=== PATIENT | female | born 1970 | race Caucasian/White ===

== ENCOUNTER 2019-05-01 12:30 | Emergency (ER) | payer OTHER, SELFPAY ==
[2019-05-01 12:39] VITALS: BP 156/94; PULSE 87; RESP 22; TEMP 36.7; O2SAT 99; BMI 30.7
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
--- NOTE | 2019-05-01 12:55 | XR_ITS ---
WS: [id number] Portable AP upright chest, 05/01/2019 Clinical Data: CHEST PAIN Comparison: Portable chest, 04/21/2019. Findings: No nodules, masses or effusions are seen. The heart is normal. The pulmonary vascularity is not increased. No pneumonia or pneumothorax is seen. XR/XR chest 1V portable [id number] Impression: Negative chest.
[2019-05-01 13:28] LABS: Basophils # 0.1 10^3/uL (0.0-0.1); Basophils % 0.6 %; Eosinophils # 0.1 10^3/uL (0.0-0.8); Eosinophils % 0.5 %; Hematocrit 42.8 % (37.0-47.0); Hemoglobin 14.2 g/dL (11.5-15.3); Lymphocytes # 3.6 10^3/uL (0.8-4.8); Mean Corpuscular HGB Conc 33.2 g/dL (30.0-36.0); Mean Corpuscular Hemoglobin 30.8 pg (28.0-34.0); Mean Corpuscular Volume 92.8 fL (81-99); Mean Platelet Volume 10.7 fL (7.4-10.4); Monocytes # 1.1 10^3/uL (0.2-0.9); Monocytes % 6.2 %; Neutrophils # 12.1 10^3/uL (1.8-7.7); Neutrophils % 70.8 %; Nucleated Red Blood Cells % 0 %; Platelet Count 361 10^3/cmm (130-400); Red Blood Count 4.61 10^6/uL (4.1-5.3); Red Cell Distribution Width 13.2 % (12.1-15.1)
[2019-05-01 13:45] LABS: Troponin(5th) Baseline 7 ng/mL (0-10)
[2019-05-01 13:53] LABS: Alanine Aminotransferase 15 U/L (0-33); Albumin Level 4.3 g/dL (3.5-5.2); Alkaline Phosphatase 164 IU/L (35-105); Anion Gap 18.5 (5-19); Aspartate Amino Transferase 12 U/L (0-32); Blood Urea Nitrogen 11 mg/dL (6-20); Calcium 9.9 mg/Dl (8.6-10.0); Carbon Dioxide 22 mmol/L (22-29); Chloride 100 mmol/L (98-107); Globulin 3.1 g/dL (1.3-4.6); Glomerular Filtration Rate 76.6 mL/min (90-130); Glucose 101 mg/dL (74-109); Lipase 25 U/L (13-60); NT Pro B Type Natriuretic Pept 256 pg/mL (0-125); Potassium 3.5 mmol/L (3.5-5.1); Sodium 137 mmol/L (136-145); Total Bilirubin 0.2 mg/dL (0.15-1.2); Total Protein 7.4 g/dL (6.6-8.7)
[2019-05-01] MEDS: ondansetron 2 mg/ML SDV 2 mL 4 MG IVP (13:57)
[2019-05-01] MEDS: nitroglycerin 0.4 mg sublingual Tablet SUBLINGUAL (13:58)
[2019-05-01] MEDS: sodium chloride 0.9% 500 ML 999 ML IV (13:59)
[2019-05-01] MEDS: aspirin 81 mg Chew Tablet 324 MG PO (13:59)
[2019-05-01 14:29] LABS: D Dimer 0.45 ug/mIFEU (0-0.59)
[2019-05-01 14:38] LABS: ABG PCO2 31.7 mmHg (35-45); ABG PH Result 7.46 (7.35-7.45); Arterial Blood Gas Hematocrit 41.2 % (37-47); Base Excess ABG -0.3 mmol/L (-2.0-2.0); Blood Gas Allen Test Pos; Blood Gas Sample Site Brachial, left; Blood Gas Sample Type Arterial; HCO3 ABG 22.7 mmol/L (22-26); PO2 ABG 84.9 mmHg (80.0-100.0)
--- NOTE | 2019-05-01 14:55 | ECG_ITS ---
Measurements Intervals [place] Rate: 67 P: 58 NV: 133 QRS: 68 QRSD: 93 T: 58 QT: 401 QTc: 425 SINUS RHYTHM WITH SINUS ARRHYTHMIA Compared to ECG 04/21/2019 09:14:59 No significant changes Electronically Signed On 05-01-2019 19:09:01 [facility] by Liliana Aguilera M.D. [id number]
[2019-05-01 16:03] LABS: Troponin 5 2HR 7.13 ng/mL (0-10)
[2019-05-01 16:14] LABS: Troponin 5 2HR Delta 0.13 ABS# (0-10)
[2019-05-01] MEDS: ipratropium-albuterol 3 mL Neb 9 ML INHALATION (16:16)
[2019-05-01 16:18] VITALS: PULSE 79; RESP 16; O2SAT 98
[2019-05-01 16:28] VITALS: PULSE 94
[2019-05-01 16:37] VITALS: BP 137/77; PULSE 94; RESP 20; O2SAT 99
[2019-05-01 17:22] VITALS: BP 105/75; PULSE 68; RESP 17; O2SAT 99
--- NOTE | 2019-05-01 18:55 | ECG_ITS ---
Measurements Intervals [place] Rate: 87 P: 56 MD: 131 QRS: 68 QRSD: 94 T: 61 QT: 351 QTc: 424 SINUS RHYTHM Compared to ECG 04/21/2019 09:14:59 No significant changes Electronically Signed On 05-01-2019 19:10:01 MANAGER AIR by Liliana Aguilera M.D. [id number]
== END 2019-05-01 17:23 | disposition home or self-care (01) ==
PROVIDERS: Emergency Provider Emergency Medicine; Family Provider Nurse Practitioner
DX: J44.1 Chronic obstructive pulmonary disease with (acute) exacerbation (principal); F17.210 Nicotine dependence, cigarettes, uncomplicated
CPT/HCPCS: 36415; 36600; 71045; 80053; 82803; 83690; 83880; 84484; 85025; 85378; 93005; 94640; 96360; 96365; 96374; 99282; J1100; J2405; J2930; J7040

== ENCOUNTER 2020-04-05 08:52 | Emergency (ER) | payer OTHER, SELFPAY ==
[2020-04-05] VITALS (10 sets, daily range): BP systolic 118–146; BP diastolic 73–95; PULSE 87–102; RESP 16–20; TEMP 36.7; O2SAT 97–100; BMI 31.4
--- NOTE | 2020-04-05 08:56 | XR_ITS ---
WS: [id number] XR chest 1V portable [id number] REASON FOR EXAM: sob FINDINGS: The chest is unchanged compared to previous examination of 05/01/2019. The heart and mediastinum are within normal limits. Calcified granulomatous changes in both hemithoraces. No active pulmonary parenchymal pleural disease noted. Mild reverse S thoracic scoliosis. XR/XR chest 1V portable [id number] IMPRESSION: No acute chest abnormality.
[2020-04-05 09:56] LABS: Basophils # 0.1 10^3/uL (0.0-0.1); Basophils % 0.8 %; Eosinophils # 0.2 10^3/uL (0.0-0.8); Eosinophils % 1.9 %; Hematocrit 44.1 % (37.0-47.0); Hemoglobin 14.3 g/dL (11.5-15.3); Lymphocytes # 1.9 10^3/uL (0.8-4.8); Lymphocytes % 22.7 %; Mean Corpuscular HGB Conc 32.4 g/dL (30.0-36.0); Mean Corpuscular Volume 92.5 fL (81-99); Mean Platelet Volume 10.6 fL (7.4-10.4); Monocytes # 0.8 10^3/uL (0.2-0.9); Monocytes % 8.8 %; Neutrophils # 5.56 10^3/uL (1.8-7.7); Neutrophils % 65.4 %; Nucleated Red Blood Cells % 0 %; Platelet Count 332 10^3/cmm (130-400); Red Blood Count 4.77 10^6/uL (4.1-5.3); White Blood Count 8.5 10^3/uL (4.0-10.0)
[2020-04-05 10:08] LABS: D Dimer 0.28 ug/mIFEU (0-0.59)
--- NOTE | 2020-04-05 10:08 | ECG_ITS ---
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 Measurements Intervals [place] Rate: 94 P: 64 [place]: 152 QRS: 79 QRSD: 93 T: 74 QT: 355 QTc: 445 Interpretive Statements SINUS RHYTHM MODERATE ST DEPRESSION [0.05+ mV ST DEPRESSION] No previous ECG available for comparison Electronically Signed On 04-06-2020 19:43:53 SHIFT MGR by Liliana Aguilera M.D. [id number]
[2020-04-05 10:10] LABS: Alanine Aminotransferase 13 U/L (0-33); Albumin Level 4.4 g/dL (3.5-5.2); Alkaline Phosphatase 163 IU/L (35-105); Aspartate Amino Transferase 16 U/L (0-32); Blood Urea Nitrogen 12 mg/dL (6-20); Calcium 9.2 mg/dL (8.5-10.5); Carbon Dioxide 22 mmol/L (22-29); Chloride 103 mmol/L (98-107); Creatinine Clr Calc Pharmacy 105.1156; Glomerular Filtration Rate 88.9 mL/min (90-130); Glucose 91 mg/dL (65-115); Osmolality Calculated 283 mOsm/kg (285-295); Sodium 137 mmol/L (136-145); Total Bilirubin 0.3 mg/dL (0.15-1.2); Total Protein 6.4 g/dL (6.6-8.7)
[2020-04-05 10:12] LABS: Troponin T (5th) Once 6 ng/L (0-10)
[2020-04-05 10:13] LABS: Anion Gap 16.1 (5-19); Potassium 4.1 mmol/L (3.5-5.1)
[2020-04-05 10:57] LABS: SARS Covid-2 Antigen Negative (Negative)
--- NOTE | 2020-04-05 12:42 | ED_ITS ---
HPI - SOB/Dyspnea General: Chief Complaint: Shortness of Breath/Dyspnea Stated Complaint: Trouble Breathing Time Seen by Provider: 04/05/20 08:56 Source: patient Mode of arrival: ambulatory Limitations: no limitations History of Present Illness: HPI Narrative: 49-year-old female patient presents to the emergency department complaining of shortness of breath. Patient states this is been going on for a few days. Patient states she is being worked up for COPD and has chronic shortness of breath. Patient denies any chest pain. Patient denies any fever. Patient denies any back pain. Patient denies any history of blood clots. Patient denies any abdominal pain nausea or vomiting. Patient states nothing she does makes it better or worse. Patient states she used her inhaler x4 prior to coming in. Associated symptoms: Deny abdominal pain, chest congestion, chest pain, diaphoresis, dizziness, extremity pain, fever(s), hemoptysis, lightheadedness, nausea, orthopnea, palpitations, polydipsia, polyuria, syncope or vomiting Review of Systems Const: Denies: fever(s), chills, body aches, change in appetite, change in weight, fatigue, malaise or diaphoresis Eyes: Denies: change in vision, blurry vision, blind spots, photophobia, eye discomfort, eye discharge, eye redness, floaters or seeing flashes ENMT: Denies: throat pain, uvular edema, enlarged tonsils, odynophagia, hoarseness, mouth pain, swelling of lips/tongue, oral sores, bleeding gums, dental pain, dry mouth, ear or mastoid pain, ear discharge, change in hearing, tinnitus, disequilibrium, nasal discharge, nasal congestion, post nasal drip or sinus pain Card: Denies: chest pain, palpitations, irregular heart rhythm, edema, swelling of feet/ankles, lightheadedness, syncope, pre-syncope, dyspnea on exertion, orthopnea, leg pain with exertion or acrocyanosis Resp: Reports: dyspnea; Denies: productive cough, non-productive cough, wheezing, stridor, pain on inspiration, change in phlegm color, hemoptysis or chest congestion GI: Denies: abdominal pain, nausea, vomiting, hematemesis, dysphagia, diarrhea, constipation, GI cramping, change in bowel habits or rectal pain : Denies: flank pain, difficulty voiding, dysuria, urinary frequency, urinary urgency, urinary hesitancy or hematuria Musc: Denies: neck pain, back pain, extremity pain, extremity swelling, joint pain, joint swelling, joint redness, joint warmth or deformity Skin/Breast: Denies: rash, pruritus, erythema, sores, new lesions, changes in skin color or dry skin Neuro: Denies: headache(s), numbness in extremities, weakness in extremities, sensory changes, lack of coordination, difficulty walking, frequent falls, dizziness, vertigo, confusion, behavioral changes, Slurred speech present, difficulty communicating thoughts or seizure-like activity Psych: Denies: anxiety, depression, suicidal ideation or homicidal ideation Endo: Denies: polyuria, polydipsia, tired all the time, cold intolerance, excessive sweating, flushing, hot flashes or heat intolerance [place]/Lymph: Denies: easy bruising, easy bleeding, petechiae, purpura, enlarged lymph nodes or tender lymph nodes All/Imm: Denies: urticaria, throat swelling, tongue swelling, facial swelling, acute wheezing or itchy eyes PFSH ED PFSH: Medical History Asthma Tobacco abuse Social History Alcohol intake: never Physical Exam Const: COMMON NORMALS: no acute distress, patient oriented x3, healthy appearing, alert and well nourished GENERAL APPEARANCE: cooperative, comfor table, well kempt and well developed; not ill appearing ORIENTATION/CONSCIOUSNESS: Yes awake, Yes oriented to person, Yes oriented to place and Yes oriented to time HENMT: COMMON NORMALS: normocephalic, atraumatic, hearing grossly normal bilaterally, external ears normal, EAC's normal, TM's normal bilaterally, Normal external nose present, Normal nasal mucous membranes and turbinates present and moist oral mucous membranes HEAD & SCALP: normal to inspection, normocephalic and atraumatic FACE & SINUS: normal facial exam, sinuses nontender and face symmetric NOSE: Normal external nose present, Normal nares present, Normal nasal mucous membranes and turbinates present, No nasal discharge present and Abnormal external nose present EXTERNAL EAR: Yes external ears normal and Yes mastoids normal EXTERNAL AUDITORY CANAL: EAC's normal TYMPANIC MEMBRANE: TM's normal bilaterally MOUTH: Normal oral and palatal mucosa present, lip normal, tongue normal and Normal salivary glands and ducts present THROAT: no uvular edema Eye: COMMON NORMALS: Equal, round and reactive pupils present, EOMs intact bilaterally, conjunctivae normal and no scleral icterus GENERAL EYE: appearance normal, both eyes and all related structures EYELID: eyelids normal CONJUNCTIVA: Yes conjunctivae normal SCLERA: sclerae normal COR HI: Yes corneas normal PUPIL: Yes Equal, round and reactive pupils present Neck/C-Spine: COMMON NORMALS: full ROM, no lymphadenopathy, supple, no meningeal signs, no JVD and Thyroid normal GENERAL: Yes normal visual inspection and Yes trachea midline THYROID: Thyroid normal CERVICAL SPINE: Yes cervical ROM normal Lymph: LYMPHATIC: no lymphadenopathy noted and no lymphedema noted Chest: COMMONS NORMALS: normal inspection of the chest and normal palpation of entire chest wall Resp: COMMON NORMALS: normal respiratory effort, No retractions, No use of accessory muscles and clear to auscultation bilaterally EFFORT & INSPECTION: Yes able to speak in complete sentences and Yes symmetric chest movement AUSCULTATION: clear to auscultation bilaterally Cardio: COMMON NORMALS: no JVD, regular rate and regular rhythm RATE: regular rate RHYTHM: regular rhythm GI: COMMON NORMALS: Normal to inspection, nondistended, normoactive bowel sounds present, Soft to palpation, non-tender, No hepatosplenomegaly present, no masses and no bruits INSPECTION: Yes normal to inspection AUSCULTATION: Yes normoactive bowel sounds PALPATION: Yes Soft to palpation and Yes No hepatosplenomegaly present PERCUSSION: normal to percussion RECTAL EXAM: deferred : COMMON NORMALS: Yes no CVA tenderness, Yes normal external appearance, Yes normal appearance of the vagina, Yes normal appearance of the cervix, Yes normal bimanual exam, Yes No adnexal tenderness and Yes no masses BLADDER/KIDNEY EXAM: Yes no CVA tenderness BIMANUAL EXAM - VAGINA & UTERUS: Yes normal bimanual exam Back/Pelvis: COMMON NORMALS: no CVA tenderness, thoracic and lumbar spine normal to inspection, no thoracic nor lumbar tenderness and thoraco-lumbar ROM normal THORACIC SPINE/UPPER BACK: Yes normal to inspection LUMBAR SPINE/LOWER BACK: Yes normal to inspection Extremity: COMMON NORMALS: normal to inspection, full ROM and capillary refill normal GENERAL: Yes normal exam except as noted Neuro: COMMON NORMALS: patient oriented x3, CN's II-XII intact bilaterally, moves all extremities, no focal motor deficits, no sensory deficits noted and gait normal SENSORIUM/ORIENTATION: Yes alert, Yes oriented to person, Yes oriented to place and Yes oriented to time MENINGEAL SIGNS: Yes no meningeal signs CRANIAL NERVES: Yes CN normal except as noted SPEECH: speech normal GAIT: Yes Normal gait present SENSORY EXAM: Yes extremities MOTOR EXAM: 5/5 motor strength present throughout Psych: COMMON NORMALS: mental status grossly normal, Normal thought process present, cooperative, normal affect, speech normal, activity/motor behavior normal, denies hallucinations, denies homicidal ideation and denies suicidal ideation APPEARANCE: Yes grossly normal and Yes well kempt ATTITUDE: Yes calm ACTIVITY/MOTOR BEHAVIOR: Yes appropriate eye contact SPEECH: Yes normal speech THOUGHT PROCESS: Normal thought process present THOUGHT CONTENT: Yes Normal thought content present ATTENTION/CONCENTRATION: Yes attention grossly intact MEMORY/COGNITION: Yes memory grossly intact INSIGHT: Good insight present (Psych) JUDGEMENT: Good judgement present (Psych) Skin: COMMON NORMALS: no rashes or lesions noted, no wounds, turgor normal, no jaundice, no petechiae and no mottling GENERAL SKIN EXAM: no rashes or lesions noted and turgor normal Course Vital Signs: Vital signs: Vital Signs Temperature 98.0 F 04/05/20 09:15 Pulse Rate 89 04/05/20 12:00 Respiratory Rate 16 04/05/20 12:00 Blood Pressure 146/84 04/05/20 12:00 Pulse Oximetry 97 04/05/20 12:00 MDM - SOB/Dyspnea MDM Narrative: Medical decision making narrative: Patient is well-appearing nontoxic and in no acute distress. Patient's lungs are clear to auscultate bilaterally. Patient was given Solu-Medrol 125 mg IV. Patient presents with no evidence of respiratory distress. Patient has no evidence of hypoxia. Patient is 100% on room air. There is no retractions wheezing or stridor noted. Patient was negative for Covid. Patient's labs are unremarkable. Patient's chest x-ray did not show any acute findings. Patient's EKG did not show any ST elevation or depression noted. Troponin was negative this making cardiac ischemia unlikely. Patient did deny any chest pain. Patient's did a D-dimer was below cutoff I believe patient was initially tachycardic due to her using her inhaler x4 prior to arrival. Patient states she feels much better and would like to go home. I discussed with patient close follow-up and return precautions. Patient is medically cleared and appropriate for discharge this case was discussed with Dr. Mera Differential Diagnosis: Shortness of Breath Differential Diagnosis: Likely acute exacerbation of chronic obstructive airways disease, community acquired pneumonia, asthma with exacerbation and pulmonary embolism Lab Data: Labs: Lab Results 04/05/20 04/05/20 04/05/20 Range/Units 09:45 09:45 09:45 WBC 8.5 (4.0-10.0) 10^3/ uL RBC 4.77 (4.1-5.3) 10^6/u L Hgb 14.3 (11.5-15.3) g/dL Hct 44.1 (37.0-47.0) % MCV 92.5 (81-99) fL MCH 30.0 (28.0-34.0) pg MCHC 32.4 (30.0-36.0) g/dL RDW 13.0 (12.1-15.1) % Plt Count 332 (130-400) 10^3/c mm MPV 10.6 H (7.4-10.4) fL Neut % (Auto) 65.4 % Lymph % (Auto) 22.7 % [place] % (Auto) 8.8 % Eos % (Auto) 1.9 % Baso % (Auto) 0.8 % Neut # (Auto) 5.56 (1.8-7.7) 10^3/u L Lymph # (Auto) 1.9 (0.8-4.8) 10^3/u L [place] # (Auto) 0.8 (0.2-0.9) 10^3/u L Eos # (Auto) 0.2 (0.0-0.8) 10^3/u L Baso # (Auto) 0.1 (0.0-0.1) 10^3/u L Nucleated RBC % (a uto) 0 % Nucleated RBCs # 0.0 /100WBC D-Dimer 0.28 (0-0.59) ug/mIFE U Sodium 137 (136-145) mmol/L Potassium 4.1 (3.5-5.1) mmol/L Chloride 103 (98-107) mmol/L Carbon Dioxide 22 (22-29) mmol/L Anion Gap 16.1 (5-19) BUN 12 (6-20) mg/dL Creatinine 0.7 (0.5-0.9) mg/dL GFR Calculation 88.9 L (90-130) mL/min Glucose 91 (65-115) mg/dL Calculated Osmolal ity 283 L (285-295) mOsm/k g Calcium 9.2 (8.5-10.5) mg/dL Total Bilirubin 0.3 (0.15-1.2) mg/dL AST 16 (0-32) U/L ALT 13 (0-33) U/L Alkaline Phosphata se 163 H (35-105) IU/L Troponin T Gen 5 n g/L (0-10) ng/L Total Protein 6.4 L (6.6-8.7) g/dL Albumin 4.4 (3.5-5.2) g/dL Globulin 2.0 (1.3-4.6) g/dL SARS-CoV-2 Ag (Rap id) (Negative) 04/05/20 04/05/20 Range/Units 09:45 10:30 WBC (4.0-10.0) 10^3/ uL RBC (4.1-5.3) 10^6/u L Hgb (11.5-15.3) g/dL Hct (37.0-47.0) % MCV (81-99) fL MCH (28.0-34.0) pg MCHC (30.0-36.0) g/dL RDW (12.1-15.1) % Plt Count (130-400) 10^3/c mm MPV (7.4-10.4) fL Neut % (Auto) % Lymph % (Auto) % [place] % (Auto) % Eos % (Auto) % Baso % (Auto) % Neut # (Auto) (1.8-7.7) 10^3/u L Lymph # (Auto) (0.8-4.8) 10^3/u L [place] # (Auto) (0.2-0.9) 10^3/u L Eos # (Auto) (0.0-0.8) 10^3/u L Baso # (Auto) (0.0-0.1) 10^3/u L Nucleated RBC % (a uto) % Nucleated RBCs # /100WBC D-Dimer (0-0.59) ug/mIFE U Sodium (136-145) mmol/L Potassium (3.5-5.1) mmol/L Chloride (98-107) mmol/L Carbon Dioxide (22-29) mmol/L Anion Gap (5-19) BUN (6-20) mg/dL Creatinine (0.5-0.9) mg/dL GFR Calculation (90-130) mL/min Glucose (65-115) mg/dL Calculated Osmolal ity (285-295) mOsm/k g Calcium (8.5-10.5) mg/dL Total Bilirubin (0.15-1.2) mg/dL AST (0-32) U/L ALT (0-33) U/L Alkaline Phosphata se (35-105) IU/L Troponin T Gen 5 n g/L 6 (0-10) ng/L Total Protein (6.6-8.7) g/dL Albumin (3.5-5.2) g/dL Globulin (1.3-4.6) g/dL SARS-CoV-2 Ag (Rap id) Negative (Negative) Discharge Plan Discharge Patient Disposition: Home Clinical Impression: Chronic dyspnea Condition: Stable Prescriptions: No Action albuterol sulfate [ProAir HFA] 90 mcg/actuation HFA aerosol inhaler 2 puff INHALATION Q6H PRN (Reason: Shortness Of Breath) RF: 0 Symbicort 80-4.5 mcg/actuation HFA aerosol inhaler 2 puff INHALATION BID@ RF: 0 bupropion HCl 150 mg tablet sustained-release 12 hr 150 mg PO BID@ RF: 0 Benadryl 25 mg Capsule 25 mg PO BEDTIME@ RF: 0 montelukast 10 mg tablet 10 mg PO DAILY@ RF: 0 epinephrine 0.3 mg/0.3 mL auto-injector 0.3 mg IM . DIRECTED PRN (Reason: Allergic Reaction) RF: 0 Advil PM 200-38 mg Tablet 1 tab PO BEDTIME@ RF: 0 Spiriva Respimat 2.5 mcg/actuation mist 2 puff INHALATION DAILY@07 RF: 0 Discharge Orders: Discharge ED (Routine); Ordered 04/05/20 Ordered By: Judy Chu Referrals: Yamileth Russo FNP [Primary Care Provider] - Discharge Diet: Advance as tolerated Discharge Activity: Resume usual activity Coding Level of Care Code ED Glass Laminating Operator for Elizabeth Butler
== END 2020-04-05 13:08 | disposition home or self-care (01) ==
PROVIDERS: Emergency Provider Registered Nurse; PCP Nurse Practitioner
DX: R06.00 Dyspnea, unspecified (principal)
CPT/HCPCS: 12345; 71045; 80053; 84484; 85025; 85378; 87426; 93005; 96374; 99283; J2930

== ENCOUNTER 2020-04-27 10:06 | Emergency (ER) | payer OTHER, SELFPAY ==
[2020-04-27 10:16] VITALS: BP 158/83; PULSE 90; RESP 22; TEMP 36.5; O2SAT 98; BMI 31.6
--- NOTE | 2020-04-27 10:36 | XR_ITS ---
WS: [id number] PORTABLE CHEST HISTORY: Chest pain. COMPARISON: 04/05/2020 Lungs are clear and well expanded. No pleural effusion or pneumothorax. Cardiac size: Normal. Mediastinum/Aorta: Normal mediastinum. No osseous abnormality seen. XR/XR chest 1V portable [id number] IMPRESSION: Unremarkable portable chest.
--- NOTE | 2020-04-27 10:36 | ECG_ITS ---
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
--- NOTE | 2020-04-27 11:48 | W.ED.CHESTPA ---
HPI - Chest Pain General: Chief Complaint: Chest Pain Stated Complaint: High BP and Pulse Time Seen by Provider: 04/27/20 11:39 Source: patient Mode of arrival: ambulatory Limitations: no limitations History of Present Illness: HPI narrative: 49-year-old female patient presents to the emergency department with pain in her left arm, shortness of breath, states could not breathe, chest pressure to the left side this morning. She reports symptoms on and off for the past 6 months. She reports saw her primary care provider yesterday, states referral to butadiene converter helper is pending. She states does not take aspirin on a daily basis. Reports history of COPD and lung disease, work-up from special events planner 2019 revealed nodules on her lungs. She denies change of sputum production, continues to smoke. She reports pain is currently resolved, did experience nausea at onset. She reports pain was present in her left arm. Associated symptoms: Reports dyspnea and palpitations (x 6 months); Deny abdominal pain, diaphoresis, fever(s), nausea, syncope or vomiting Review of Systems General: Reports: 10 or more systems reviewed and unremarkable except in HPI and below Const: Reports: fatigue; Denies: fever(s), chills, body aches, malaise or diaphoresis Eyes: Denies: blurry vision, eye discomfort, eye redness or dry eyes ENMT: Denies: throat pain, dental pain, disequilibrium, nasal discharge or nasal congestion Card: Reports: chest pain, palpitations (x 6 months) and dyspnea on exertion; Denies: irregular heart rhythm, edema, swelling of feet/ankles or syncope Resp: Reports: dyspnea and productive cough; Denies: non-productive cough, wheezing, change in phlegm color, hemoptysis or chest congestion GI: Denies: abdominal pain, nausea, vomiting, dysphagia, heartburn or diarrhea : Denies: difficulty voiding or dysuria Musc: Denies: neck pain, back pain, joint pain or joint stiffness Skin/Breast: Denies: rash or pruritus Neuro: Denies: headache(s), weakness in extremities or behavioral changes Juventino/Lymph: Denies: easy bruising PFSH ED PFSH: Medical History Asthma Tobacco abuse Social History Alcohol intake: never Physical Exam Const: COMMON NORMALS: no acute distress, patient oriented x3, healthy appearing and alert GENERAL APPEARANCE: cooperative, comfortable and well hydrated HENMT: COMMON NORMALS: normocephalic, Normal external nose present and moist oral mucous membranes HEAD & SCALP: normocephalic NOSE: Normal external nose present Eye: COMMON NORMALS: Equal, round and reactive pupils present and EOMs intact bilaterally GENERAL EYE: appearance normal, both eyes and all related structures PUPIL: Yes Equal, round and reactive pupils present Neck/C-Spine: COMMON NORMALS: full ROM and no lymphadenopathy GENERAL: Yes normal visual inspection and Yes trachea midline CERVICAL SPINE: Yes cervical ROM normal Lymph: LYMPHATIC: no lymphadenopathy noted Chest: COMMONS NORMALS: normal inspection of the chest and normal palpation of entire chest wall CHEST: No localized rib tenderness with anteroposterior compression Resp: COMMON NORMALS: normal respiratory effort, No retractions, No use of accessory muscles and clear to auscultation bilaterally EFFORT & INSPECTION: Yes able to speak in complete sentences, No respiratory distress, No labored and No audible wheezes AUSCULTATION: clear to auscultation bilaterally Cardio: COMMON NORMALS: regular rate, regular rhythm, S1 normal heart sound present, S2 normal heart sound present and Peripheral pulses 2+ throughout RATE: regular rate RHYTHM: regular rhythm HEART SOUNDS: S1 normal heart sound present and S2 normal heart sound present PERIPHERAL PULSES: Peripheral pulses 2+ throughout GI: COMMON NORMALS: Normal to inspection, nondistended, normoactive bowel sounds present, Soft to palpation and non-tender INSPECTION: Yes normal to inspection PALPATION: Yes Soft to palpation : COMMON NORMALS: Yes no CVA tenderness BLADDER/KIDNEY EXAM: Yes no CVA tenderness Back/Pelvis: COMMON NORMALS: no CVA tenderness, thoracic and lumbar spine normal to inspection and no thoracic nor lumbar tenderness Extremity: COMMON NORMALS: normal to inspection, full ROM, capillary refill normal and no pedal edema GENERAL: Yes normal exam except as noted Neuro: COMMON NORMALS: patient oriented x3 and no focal motor deficits SENSORIUM/ORIENTATION: Yes alert Psych: COMMON NORMALS: mental status grossly normal, Normal thought process present, cooperative, normal affect and speech normal APPEARANCE: Yes grossly normal ATTITUDE: Yes calm ACTIVITY/MOTOR BEHAVIOR: Yes appropriate eye contact SPEECH: Yes normal speech MOOD & AFFECT: No depressed mood, No anxious and Yes tearful THOUGHT PROCESS: Normal thought process present ATTENTION/CONCENTRATION: Yes attention grossly intact MEMORY/COGNITION: Yes memory grossly intact INSIGHT: Good insight present (Psych) JUDGEMENT: Good judgement present (Psych) Skin: COMMON NORMALS: no rashes or lesions noted and turgor normal GENERAL SKIN EXAM: no rashes or lesions noted and turgor normal Course Vital Signs: Vital signs: Vital Signs Temperature 97.7 F 04/27/20 10:16 Pulse Rate 82 04/27/20 14:51 Respiratory Rate 20 H 04/27/20 14:51 Blood Pressure 127/89 04/27/20 14:51 Pulse Oximetry 99 04/27/20 14:51 MDM - Chest Pain MDM Narrative: Medical decision making narrative: Heart Score 3 -serial EKGs, 2-hour without acute ischemia/findings; troponin series with negative delta, TSH normal, Leandra scan stress test set up as an outpatient along with 72-hour Holter monitor. She will also be set up with outpatient cardiology, daily baby aspirin also initiated. Treat with prednisone due to increased shortness of breath with history of asthma and COPD. Advised to return to the emergency department if she develop worsening symptoms, verbalized understanding. Results were discussed along with plan of care. She agrees to continue follow-up with her primary care provider. Lab Data: Labs: Lab Results 04/27/20 04/27/20 04/27/20 Range/Units 12:15 12:15 12:15 WBC 7.9 (4.0-10.0) 10^3/ uL RBC 4.67 (4.1-5.3) 10^6/u L Hgb 14.1 (11.5-15.3) g/dL Hct 42.8 (37.0-47.0) % MCV 91.6 (81-99) fL MCH 30.2 (28.0-34.0) pg MCHC 32.9 (30.0-36.0) g/dL RDW 13.2 (12.1-15.1) % Plt Count 296 (130-400) 10^3/c mm MPV 10.5 H (7.4-10.4) fL Neut % (Auto) 66.9 % Lymph % (Auto) 23.0 % Toole % (Auto) 6.9 % Eos % (Auto) 1.5 % Baso % (Auto) 1.4 % Neut # (Auto) 5.30 (1.8-7.7) 10^3/u L Lymph # (Auto) 1.8 (0.8-4.8) 10^3/u L Toole # (Auto) 0.6 (0.2-0.9) 10^3/u L Eos # (Auto) 0.1 (0.0-0.8) 10^3/u L Baso # (Auto) 0.1 (0.0-0.1) 10^3/u L Nucleated RBC % (a uto) 0 % Nucleated RBCs # 0.0 /100WBC Sodium 135 L (136-145) mmol/L Potassium 4.2 (3.5-5.1) mmol/L Chloride 101 (98-107) mmol/L Carbon Dioxide 25 (22-29) mmol/L Anion Gap 13.2 (5-19) BUN 9 (6-20) mg/dL Creatinine 0.8 (0.5-0.9) mg/dL GFR Calculation 76.2 L (90-130) mL/min Glucose 99 (65-115) mg/dL Calculated Osmolal ity 279 L (285-295) mOsm/k g Calcium 9.1 (8.5-10.5) mg/dL Total Bilirubin 0.3 (0.15-1.2) mg/dL AST 17 (0-32) U/L ALT 16 (0-33) U/L Alkaline Phosphata se 153 H (35-105) IU/L Troponin T Baselin e 6 (0-10) ng/L Troponin T 120 Min [place] (0-10) ng/L Delta Troponin T (0-10) ABS# Total Protein 6.5 L (6.6-8.7) g/dL Albumin 4.4 (3.5-5.2) g/dL Globulin 2.1 (1.3-4.6) g/dL TSH 1.10 (0.27-4.20) uIU/ mL 04/27/20 Range/Units 13:47 WBC (4.0-10.0) 10^3/ uL RBC (4.1-5.3) 10^6/u L Hgb (11.5-15.3) g/dL Hct (37.0-47.0) % MCV (81-99) fL MCH (28.0-34.0) pg MCHC (30.0-36.0) g/dL RDW (12.1-15.1) % Plt Count (130-400) 10^3/c mm MPV (7.4-10.4) fL Neut % (Auto) % Lymph % (Auto) % [place]ole % (Auto) % Eos % (Auto) % Baso % (Auto) % Neut # (Auto) (1.8-7.7) 10^3/u L Lymph # (Auto) (0.8-4.8) 10^3/u L [place]ole # (Auto) (0.2-0.9) 10^3/u L Eos # (Auto) (0.0-0.8) 10^3/u L Baso # (Auto) (0.0-0.1) 10^3/u L Nucleated RBC % (a uto) % Nucleated RBCs # /100WBC Sodium (136-145) mmol/L Potassium (3.5-5.1) mmol/L Chloride (98-107) mmol/L Carbon Dioxide (22-29) mmol/L Anion Gap (5-19) BUN (6-20) mg/dL Creatinine (0.5-0.9) mg/dL GFR Calculation (90-130) mL/min Glucose (65-115) mg/dL Calculated Osmolal ity (285-295) mOsm/k g Calcium (8.5-10.5) mg/dL Total Bilirubin (0.15-1.2) mg/dL AST (0-32) U/L ALT (0-33) U/L Alkaline Phosphata se (35-105) IU/L Troponin T Baselin e (0-10) ng/L Troponin T 120 Min [place] 6.01 (0-10) ng/L Delta Troponin T 0.01 (0-10) ABS# Total Protein (6.6-8.7) g/dL Albumin (3.5-5.2) g/dL Globulin (1.3-4.6) g/dL TSH (0.27-4.20) uIU/ mL Imaging Data^: CXR: Radiologist's impression: [address] [address] XRay Report Signed Patient: Manjit Izquierdo #: [id number] : 1970Acct#:[id number] Age/Sex: 49 / FADM Date: 04/27/20 Loc: ERRoom/Bed: Attending Dr: Ordering Provider/Ordering MD: Vero Guardado Date of Service: 04/27/20 Procedure(s): XR chest 1V portable [id number] Accession Number(s): [id number] Report Number: [id number] WS: [id number] PORTABLE CHEST HISTORY: Chest pain. COMPARISON: 04/05/2020 Lungs are clear and well expanded. No pleural effusion or pneumothorax. Cardiac size: Normal. Mediastinum/Aorta: Normal mediastinum. No osseous abnormality seen. XR/XR chest 1V portable [id number] IMPRESSION: Unremarkable portable chest. Dictated By:Myra Ruffin DO Signed By:Myra Ruffin DOSigned Date/Time:04/27/20 110 DD/ 1102 Discharge Plan Discharge Patient Disposition: Home Clinical Impression: COPD with asthma Chest pain Qualifiers: Chest pain type: unspecified Qualified Code(s): R07.9 - Chest pain, unspecified Condition: Stable Prescriptions: New prednisone 20 mg tablet 20 mg PO BID 5 Days Qty: 10 RF: 0 No Action Symbicort 80-4.5 mcg/actuation HFA aerosol inhaler 2 puff INHALATION BID@ RF: 0 bupropion HCl 150 mg tablet sustained-release 12 hr 150 mg PO BID@ RF: 0 diphenhydramine HCl [Benadryl] 25 mg Capsule 25 mg PO BEDTIME@22 RF: 0 montelukast 10 mg tablet 10 mg PO DAILY@07 RF: 0 epinephrine 0.3 mg/0.3 mL auto-injector 0.3 mg IM . DIRECTED PRN (Reason: Allergic Reaction) RF: 0 Advil PM 200-38 mg Tablet 1 tab PO BEDTIME@22 RF: 0 Spiriva Respimat 2.5 mcg/actuation mist 2 puff INHALATION DAILY@07 RF: 0 lisinopril 10 mg tablet 10 mg PO DAILY@0700 RF: 0 Ventolin HFA 90 mcg/actuation HFA aerosol inhaler 2 puff INHALATION Q4H PRN (Reason: Shortness Of Breath) RF: 0 Discharge Orders: Discharge ED (Routine); Ordered 04/27/20 Ordered By: Vero Guardado Referrals: Yamileth Russo, JONNY [Primary Care Provider] - Discharge Diet: Cardiac Discharge Activity: Resume usual activity Patient Instructions: Chest Pain (ED), Asthma (ED), Chronic Obstructive Pulmonary Disease (ED) Activity Restrictions/Additional Instructions: return to the ED for chest pain (continued), shortness of breath, inability to catch your breath or other concerning symptoms. Follow up with your primary care as scheduled Follow up with cardiology as recommended by primary care outpatient holter monitor and stress test ordered - results will be sent to cardiology - social service will contact you with appt Continue inhalers as prescribed by special events planner. Take 81 mg Aspirin daily - take with food to avoid stomach upset recommended Stand Alone Forms: Work/School Release Coding Level of Care Code ED Machine Applicator Cementer for Elizabeth Fwd Exam Comprehensive
[2020-04-27 12:24] LABS: Basophils # 0.1 10^3/uL (0.0-0.1); Basophils % 1.4 %; Eosinophils # 0.1 10^3/uL (0.0-0.8); Eosinophils % 1.5 %; Hematocrit 42.8 % (37.0-47.0); Hemoglobin 14.1 g/dL (11.5-15.3); Lymphocytes # 1.8 10^3/uL (0.8-4.8); Mean Corpuscular HGB Conc 32.9 g/dL (30.0-36.0); Mean Corpuscular Hemoglobin 30.2 pg (28.0-34.0); Mean Corpuscular Volume 91.6 fL (81-99); Mean Platelet Volume 10.5 fL (7.4-10.4); Monocytes # 0.6 10^3/uL (0.2-0.9); Monocytes % 6.9 %; Neutrophils % 66.9 %; Nucleated Red Blood Cells % 0 %; Platelet Count 296 10^3/cmm (130-400); Red Blood Count 4.67 10^6/uL (4.1-5.3); Red Cell Distribution Width 13.2 % (12.1-15.1); White Blood Count 7.9 10^3/uL (4.0-10.0)
[2020-04-27 12:33] VITALS: BP 110/76; PULSE 77; RESP 18; O2SAT 98
--- NOTE | 2020-04-27 12:36 | ECG_ITS ---
[facility] Test Date: 2020-04-27 Pat Name: Radha Izquierdo Department: Room: Gender: Female Consultant In Ergonomics And Safety: : 1970 Requested By: Vero Mejía Order Number: [id number] Reading MD: ADOLPH MOCK Measurements Intervals [place] Rate: 84 P: 49 W[place]: 134 QRS: 65 QRSD: 98 T: 48 QT: 364 QTc: 432 Interpretive Statements SINUS RHYTHM Compared to ECG 04/05/2020 09:19:02 ST (T wave) deviation no longer present Electronically Signed On 04-27-2020 20:00:57 LONG TERM CARE SOCIAL WORKER by ADOLPH MOCK [email or web address]
[2020-04-27 12:48] LABS: Troponin(5th) Baseline 6 ng/L (0-10)
[2020-04-27 12:57] LABS: Alanine Aminotransferase 16 U/L (0-33); Albumin Level 4.4 g/dL (3.5-5.2); Alkaline Phosphatase 153 IU/L (35-105); Anion Gap 13.2 (5-19); Aspartate Amino Transferase 17 U/L (0-32); Blood Urea Nitrogen 9 mg/dL (6-20); Calcium 9.1 mg/dL (8.5-10.5); Carbon Dioxide 25 mmol/L (22-29); Chloride 101 mmol/L (98-107); Globulin 2.1 g/dL (1.3-4.6); Glomerular Filtration Rate 76.2 mL/min (90-130); Glucose 99 mg/dL (65-115); Osmolality Calculated 279 mOsm/kg (285-295); Potassium 4.2 mmol/L (3.5-5.1); Sodium 135 mmol/L (136-145); Total Bilirubin 0.3 mg/dL (0.15-1.2); Total Protein 6.5 g/dL (6.6-8.7)
[2020-04-27 13:30] VITALS: BP 140/90; PULSE 87; RESP 16; O2SAT 99
[2020-04-27 14:14] VITALS: BP 122/85; PULSE 85; RESP 15; O2SAT 97
[2020-04-27 14:27] LABS: Troponin 5 2HR 6.01 ng/L (0-10); Troponin 5 2HR Delta 0.01 ABS# (0-10)
[2020-04-27 14:51] VITALS: BP 127/89; PULSE 82; RESP 20; O2SAT 99
--- NOTE | 2020-04-28 10:00 | DCPLANNER ---
aquaculture farm manager had message to schedule an outpatient stress test, a halter monitor, and a follow up with cardiology. aquaculture farm manager faxed order to centralized scheduling for the stress test. aquaculture farm manager will call [facility] and schedule a follow up appointment with cardiology after the stress test. aquaculture farm manager faxed order to [facility] for the monitor.
--- NOTE | 2020-05-04 08:26 | DCPLANNER ---
Patient has a follow up appointment scheduled for Thursday, May 11 at 1:30 with [facility] for a halter monitor. Clinic will call patient with appointment information.
--- NOTE | 2020-05-21 07:41 | DCPLANNER ---
Patient has a stress test scheduled for Thursday, May 28, 2020 at 9:15, centralized scheduling will call patient with appointment information.
--- NOTE | 2020-06-24 08:11 | DCPLANNER ---
Patient had a follow up appointments for a stress test and a holter monitor - both appointments were cancelled.
== END 2020-04-27 14:51 | disposition home or self-care (01) ==
PROVIDERS: Emergency Provider Nurse Practitioner Family; PCP Nurse Practitioner
DX: J44.9 Chronic obstructive pulmonary disease, unspecified (principal); R07.9 Chest pain, unspecified
CPT/HCPCS: 12345; 71045; 80053; 84443; 84484; 85025; 93005; 99283

== ENCOUNTER → 2021-12-15 11:39 | Outpatient (BNVA) | payer OTHER, SELFPAY | PROVIDERS: Family Provider Nurse Practitioner; PCP Nurse Practitioner Family; Visit Provider Nurse Practitioner Family | DX: Z78.0 Asymptomatic menopausal state (principal); J45.909 Unspecified asthma, uncomplicated; Z72.0 Tobacco use; J44.9 Chronic obstructive pulmonary disease, unspecified; F32.9 Major depressive disorder, single episode, unspecified; J98.4 Other disorders of lung; Z01.419 Encounter for gynecological examination (general) (routine) without abnormal findings; Z12.31 Encounter for screening mammogram for malignant neoplasm of breast; Z13.820 Encounter for screening for osteoporosis; Z12.11 Encounter for screening for malignant neoplasm of colon; K21.9 Gastro-esophageal reflux disease without esophagitis; J45.901 Unspecified asthma with (acute) exacerbation; J44.1 Chronic obstructive pulmonary disease with (acute) exacerbation | CPT/HCPCS: 80053; 80061; 82306; 84443 ==

== ENCOUNTER 2022-01-10 15:29 | Outpatient (CLI) | payer OTHER, SELFPAY ==
--- NOTE | 2022-01-10 15:34 | MM_ITS ---
WS: [id number] BILATERAL 3D TOMOSYNTHESIS DIGITAL SCREENING MAMMOGRAPHY WITH CAD CLINICAL INFORMATION: SCREENING HISTORY: Screening mammogram. No current complaints. COMPARISON: TECHNIQUE: Bilateral CC and MLO views. FINDINGS: Scattered fibroglandular densities bilaterally. No suspicious focal mass, asymmetry, calcifications, or architectural distortion. No evidence of malignancy. MM/[place] [id number] IMPRESSION: BI-RADS: 1-Negative FOLLOW UP: 1 Year Follow-up Recommend return to annual screening mammography.
== END 2022-01-10 15:30 | disposition home or self-care (01) ==
LOC: RAD 15:31
PROVIDERS: PCP Nurse Practitioner Family; Visit Provider Nurse Practitioner Family
DX: Z12.31 Encounter for screening mammogram for malignant neoplasm of breast (principal)
CPT/HCPCS: 77063; 77067

== ENCOUNTER → 2022-02-24 13:52 | Outpatient (BNVA) | payer OTHER, SELFPAY | PROVIDERS: PCP Nurse Practitioner Family; Visit Provider Nurse Practitioner Family | DX: E55.9 Vitamin D deficiency, unspecified (principal); J44.9 Chronic obstructive pulmonary disease, unspecified; F32.9 Major depressive disorder, single episode, unspecified; J45.909 Unspecified asthma, uncomplicated; R20.2 Paresthesia of skin; K21.9 Gastro-esophageal reflux disease without esophagitis; Z01.419 Encounter for gynecological examination (general) (routine) without abnormal findings; E78.5 Hyperlipidemia, unspecified; E78.6 Lipoprotein deficiency; J44.1 Chronic obstructive pulmonary disease with (acute) exacerbation | CPT/HCPCS: 80053; 82607; 82746 ==

== ENCOUNTER → 2022-07-03 10:15 | Outpatient (BNVA) | payer OTHER, SELFPAY | PROVIDERS: PCP Nurse Practitioner Family; Visit Provider Obstetrics & Gynecology | DX: Z01.419 Encounter for gynecological examination (general) (routine) without abnormal findings (principal) | CPT/HCPCS: 87624 ==

== ENCOUNTER → 2022-07-12 07:47 | Outpatient (BNVA) | payer OTHER, SELFPAY | PROVIDERS: PCP Nurse Practitioner Family; Visit Provider Obstetrics & Gynecology | DX: Z78.0 Asymptomatic menopausal state (principal) | CPT/HCPCS: 76830 ==

== ENCOUNTER → 2022-09-14 12:03 | Outpatient (BNVA) | payer OTHER, SELFPAY | PROVIDERS: PCP Nurse Practitioner Family; Visit Provider Nurse Practitioner Family | DX: E78.5 Hyperlipidemia, unspecified (principal); E78.6 Lipoprotein deficiency; K21.9 Gastro-esophageal reflux disease without esophagitis; J44.9 Chronic obstructive pulmonary disease, unspecified; F32.9 Major depressive disorder, single episode, unspecified; E55.9 Vitamin D deficiency, unspecified; R20.2 Paresthesia of skin; J44.1 Chronic obstructive pulmonary disease with (acute) exacerbation | CPT/HCPCS: 80053; 80061 ==

== ENCOUNTER 2023-01-18 09:21 | Emergency (ER) | payer OTHER, SELFPAY ==
--- NOTE | 2023-01-18 09:27 | XR_ITS ---
WS: [id number] Right ankle, 3 views, 01/18/2023 Clinical Data: trauma Comparison: None. Findings: No fractures or dislocations are seen. The ankle mortise is normal. The talus and calcaneus are unrem arkable. There is soft tissue swelling over the lateral malleolus but not the medial malleolus. Impre ssion: 1. Negative for fracture or dislocation. 2. Soft tissue swelling over the lateral malleolus.
[2023-01-18 09:30] VITALS: BP 170/102; PULSE 88; RESP 16; TEMP 36.8; O2SAT 95
[2023-01-18 09:41] VITALS: BP 170/102; PULSE 83; RESP 18; O2SAT 95
[2023-01-18] MEDS: ketorolac 60 mg/2 mL INJ IM (10:20)
--- NOTE | 2023-01-18 11:53 | ED_ITS ---
HPI - Extremity Problem General: Chief complaint: Extremity Injury, Lower Stated complaint: right ankle injury, work comp Time Seen by Provider: 01/18/23 09:25 Source: patient Mode of arrival: ambulatory History of Present Illness: 52-year-old female was leaving work yesterday and stumbled on an uneven portion of sidewalk outside of her workplace. She has a minor abrasion to her left knee her biggest complaint is pain and swelling of her right ankle. She has been able to partially bear weight but it caused significant discomfort. MD Complaint: joint swelling and joint pain Quality: sharp Radiation: distal Relieving factors: elevation and rest Exacerbating factors: weight bearing Associated symptoms: Deny chest pain or fever(s) Review of Systems Const: Denies: fever(s) or chills Card: Denies: chest pain Resp: Denies: dyspnea PFSH ED PFSH: Medical History Asthma COPD (chronic obstructive pulmonary disease) Depression Pulmonary scarring Tobacco abuse Surgical History History of skin graft History of tonsillectomy and adenoidectomy History of tubal ligation Family History Family/Other Diabetes Maternal Aunt Denies family history of Colon cancer Ovarian cancer Heart disease Hypercholesteremia Breast cancer Hypertension Uterine cancer Thyroid disease Stroke Social History Substance/Drug Use: never Physical Exam Const: GENERAL APPEARANCE: cooperative and comfortable ORIENTATION/CONSCIOUSNESS: Yes awake, Yes oriented to person, Yes oriented to place and Yes oriented to time HENMT: COMMON NORMALS: normocephalic, atraumatic and hearing grossly normal bilaterally HEAD & SCALP: normocephalic and atraumatic Resp: COMMON NORMALS: normal respiratory effort, No retractions, No use of accessory muscles and clear to auscultation bilaterally AUSCULTATION: clear to auscultation bilaterally Cardio: COMMON NORMALS: regular rate, regular rhythm and No murmurs present (Cardio) RATE: regular rate RHYTHM: regular rhythm Extremity: OTHER: Right ankle lateral malleolus swelling some early ecchymosis no obvious deformity. Neurovascularly otherwise intact. There is an abrasion of the left knee at the inferior patellar region no active bleeding no deformity normal range of motion at the left knee. Neuro: SENSORIUM/ORIENTATION: Yes oriented to person, Yes oriented to place and Yes oriented to time Skin: COMMON NORMALS: no rashes or lesions noted GENERAL SKIN EXAM: no rashes or lesions noted Course Vital Signs: Vital signs: Vital Signs Temperature 98.2 F 01/18/23 09:30 Pulse Rate 83 01/18/23 09:41 Respiratory Rate 18 01/18/23 09:41 Blood Pressure 170/102 01/18/23 09:41 Pulse Oximetry 95 01/18/23 09:41 Oxygen Delivery Me thod Room Air 01/18/23 09:41 MDM - Extremity (Nontraumatic) Medical Decision Making X-ray unremarkable discharge patient home Nonweightbearing Jacob wrap for compression anti-inflammatories follow-up with primary care in the next 3 to 5days, nonweightbearing until seen. Noted that patient is needing a tetanus shot she had left 1 and noted this point not ordered while she is here it has been ordered now and will contact her to get it completed return to the emergency room or can have it done at outpatient setting with her primary care doc in the next 72 hours. Medical Records I reviewed the patient's medical records. Lab Data I reviewed the patient's lab results. All radiology interpretation(s) finalized by discharge Discharge Plan Discharge Patient Disposition: Home Clinical Impression: Ankle sprain and strain Condition: Stable Prescriptions: New diclofenac sodium 75 mg tablet,delayed release (DR/EC) 75 mg PO Q12H PRN (Reason: pain) Qty: 20 0RF No Action Trelegy Ellipta 200-62.5-25 mcg blister with device 1 inh inhalation DAILY Ventolin HFA 90 mcg/actuation HFA aerosol inhaler 2 puff INHALATION Q4H PRN (Reason: Shortness Of Breath) Qty: 18 11RF bupropion HCl 150 mg tablet sustained-release 12 hr 150 mg PO BID 90 Days Qty: 180 1RF cholecalciferol (vitamin D3) 50 mcg (2,000 unit) capsule 50 mcg PO DAILY 90 Days Qty: 90 1RF pantoprazole [Protonix] 40 mg tablet,delayed release (DR/EC) 40 mg PO DAILY 90 Days Qty: 90 1RF pregabalin [Lyrica] 50 mg capsule 50 mg PO BID 30 Days Qty: 180 1RF diphenhydramine HCl [Benadryl] 25 mg Capsule 25 mg PO BEDTIME PRN (Reason: Allergy Symptoms) montelukast 10 mg tablet 10 mg PO DAILY@07 epinephrine 0.3 mg/0.3 mL auto-injector 0.3 mg IM . DIRECTED PRN (Reason: Allergic Reaction) simvastatin 20 mg tablet 20 mg PO QPM duloxetine 20 mg capsule,delayed release(DR/EC) 20 mg PO DAILY Discharge Orders: Discharge ED (Routine); Ordered 01/18/23 Ordered By: Isai Beckett Referrals: Stephanie Ariza NP [Primary Care Provider] - Discharge Diet: Usual diet Discharge Activity: Limit activity as instructed Patient Instructions: Ankle Sprain (ED), Opioid Safety, Pain Management Activity Restrictions/Additional Instructions: Follow-up with work comp in 3 to 5 days no weightbearing on the affected extremity use crutches. You can use ice and the diclofenac prescribed. Coding Level of Care Code ED Voice Systems Engineer for Elizabeth Butler
== END 2023-01-18 10:29 | disposition home or self-care (01) ==
PROVIDERS: Emergency Provider Family Medicine; PCP Nurse Practitioner Family
DX: S93.401A Sprain of unspecified ligament of right ankle, initial encounter (principal); S96.911A Strain of unspecified muscle and tendon at ankle and foot level, right foot, initial encounter; J44.9 Chronic obstructive pulmonary disease, unspecified; S80.212A Abrasion, left knee, initial encounter; W01.0XXA Fall on same level from slipping, tripping and stumbling without subsequent striking against object, initial encounter
CPT/HCPCS: 73610; 96372; 99284; J1885

== ENCOUNTER 2023-01-29 10:43 | Outpatient (CLI) | payer OTHER, SELFPAY ==
--- NOTE | 2023-01-29 10:49 | XRR_ITS ---
PROCEDURE INFORMATION: Exam: XR Right Foot Exam date and time: 01/29/2023 10:56 AM Age: 52 years old Clinical indication: Pain; Foot; Right; Additional info: Continued pain in foot p ankle injury TECHNIQUE: Imaging protocol: Radiologic exam of the right foot. Views: 3 or more views. COMPARISON: CR XR ankle RT min 3V* [id number] 01/18/2023 9:34 AM FINDINGS: Bones/joints: No acute fracture or dislocation. Hallux valgus alignment with mild degenerative change of the 1st MTP joint. Joints are otherwise maintained. Small plantar calcaneal enthesophyte. Soft tissues: Lateral ankle soft tissue swelling. XR/XR foot RT min 3V* [id number] IMPRESSION: No acute fracture or dislocation.
== END 2023-01-29 10:44 | disposition home or self-care (01) ==
PROVIDERS: PCP Nurse Practitioner Family; Visit Provider Family Medicine
DX: M79.671 Pain in right foot (principal); S99.911A Unspecified injury of right ankle, initial encounter; X58.XXXA Exposure to other specified factors, initial encounter
CPT/HCPCS: 73630

== ENCOUNTER → 2023-03-21 11:15 | Outpatient (BNVA) | payer OTHER, SELFPAY | PROVIDERS: PCP Nurse Practitioner Family; Visit Provider Nurse Practitioner Family | DX: J44.9 Chronic obstructive pulmonary disease, unspecified (principal); F32.9 Major depressive disorder, single episode, unspecified; E78.5 Hyperlipidemia, unspecified; E78.6 Lipoprotein deficiency; E55.9 Vitamin D deficiency, unspecified; R20.2 Paresthesia of skin; K21.9 Gastro-esophageal reflux disease without esophagitis; R42 Dizziness and giddiness | CPT/HCPCS: 80053; 80061 ==

== ENCOUNTER → 2023-09-07 11:18 | Outpatient (BNVA) | payer OTHER, SELFPAY | PROVIDERS: PCP Nurse Practitioner Family; Visit Provider Nurse Practitioner Family | DX: K21.9 Gastro-esophageal reflux disease without esophagitis (principal); F34.1 Dysthymic disorder; J44.1 Chronic obstructive pulmonary disease with (acute) exacerbation; E78.5 Hyperlipidemia, unspecified; E78.6 Lipoprotein deficiency; F32.9 Major depressive disorder, single episode, unspecified; E55.9 Vitamin D deficiency, unspecified; R42 Dizziness and giddiness; J45.901 Unspecified asthma with (acute) exacerbation; R20.2 Paresthesia of skin; J30.2 Other seasonal allergic rhinitis; R05.9 Cough, unspecified | CPT/HCPCS: 80053; 80061; 85025 ==

== ENCOUNTER 2023-10-02 10:47 | Outpatient (CLI) | payer OTHER, SELFPAY ==
--- NOTE | 2023-10-02 11:00 | MM_ITS ---
WS: [id number] BILATERAL 3D TOMOSYNTHESIS DIGITAL SCREENING MAMMOGRAPHY WITH CAD CLINICAL INFORMATION: screening HISTORY: Screening mammogram. No current complaints. COMPARISON: 2021 TECHNIQUE: Bilateral CC and MLO views. FINDINGS: Scattered fibroglandular densities bilaterally. No suspicious focal mass, asymmetry, calcifications, or architectural distortion. No evidence of malignancy. MM/[place] [id number] IMPRESSION: BI-RADS: 1-Negative FOLLOW UP: 1 Year Follow-up Recommend return to annual screening mammography.
== END 2023-10-02 10:48 | disposition home or self-care (01) ==
LOC: RAD 10:47
PROVIDERS: PCP Nurse Practitioner Family; Visit Provider Nurse Practitioner Family
DX: Z12.39 Encounter for other screening for malignant neoplasm of breast (principal); Z12.31 Encounter for screening mammogram for malignant neoplasm of breast; R92.323 Mammographic fibroglandular density, bilateral breasts
CPT/HCPCS: 77063; 77067

== ENCOUNTER → 2024-01-28 15:40 | Outpatient (BNVA) | payer OTHER, SELFPAY | PROVIDERS: PCP Nurse Practitioner Family; Visit Provider Nurse Practitioner Family | DX: S99.912A Unspecified injury of left ankle, initial encounter (principal); M25.572 Pain in left ankle and joints of left foot; M25.472 Effusion, left ankle; Z18.89 Other specified retained foreign body fragments | CPT/HCPCS: 73610 ==

== ENCOUNTER → 2024-02-01 12:42 | Outpatient (BNVA) | payer OTHER, SELFPAY | PROVIDERS: PCP Nurse Practitioner Family; Visit Provider Podiatrist Foot & Ankle Surgery | DX: S92.252A Displaced fracture of navicular [scaphoid] of left foot, initial encounter for closed fracture; S92.002A Unspecified fracture of left calcaneus, initial encounter for closed fracture; S92.155A Nondisplaced avulsion fracture (chip fracture) of left talus, initial encounter for closed fracture; X58.XXXA Exposure to other specified factors, initial encounter | CPT/HCPCS: 73610; 73620 ==

== ENCOUNTER → 2024-05-12 12:56 | Outpatient (BNVA) | payer OTHER, SELFPAY | PROVIDERS: PCP Nurse Practitioner Family; Visit Provider Nurse Practitioner Family | DX: E55.9 Vitamin D deficiency, unspecified; E78.5 Hyperlipidemia, unspecified; E78.6 Lipoprotein deficiency | CPT/HCPCS: 80053; 80061; 82306; 82607; 83036; 84443; 85025 ==

== ENCOUNTER 2024-07-03 13:28 | Outpatient (CLI) | payer OTHER, SELFPAY | END 2024-07-03 13:29 | disposition home or self-care (01) | LOC: SLEEP 13:28 | PROVIDERS: PCP Nurse Practitioner Family; Visit Provider Nurse Practitioner Family | DX: G47.33 Obstructive sleep apnea (adult) (pediatric) (principal); G47.36 Sleep related hypoventilation in conditions classified elsewhere | CPT/HCPCS: G0399 ==

== ENCOUNTER → 2024-07-29 14:30 | Outpatient (BNVA) | payer OTHER, SELFPAY | PROVIDERS: PCP Nurse Practitioner Family; Visit Provider Nurse Practitioner Family | DX: R74.8 Abnormal levels of other serum enzymes (principal) | CPT/HCPCS: 80053 ==

== ENCOUNTER → 2025-02-25 11:53 | Outpatient (BNVA) | payer OTHER, SELFPAY | PROVIDERS: PCP Nurse Practitioner Family; Visit Provider Nurse Practitioner Family | DX: M25.539 Pain in unspecified wrist (principal); S52.501A Unspecified fracture of the lower end of right radius, initial encounter for closed fracture; X58.XXXA Exposure to other specified factors, initial encounter | CPT/HCPCS: 73110 ==

== ENCOUNTER → 2025-03-02 11:50 | Outpatient (BNVA) | payer OTHER, SELFPAY | PROVIDERS: PCP Nurse Practitioner Family; Visit Provider Orthopaedic Surgery | DX: Z01.818 Encounter for other preprocedural examination (principal) | CPT/HCPCS: 36415; 80053; 81001; 85025 ==

== ENCOUNTER 2025-03-04 07:09 | Day surgery (SDC) | payer OTHER, SELFPAY ==
[2025-03-04] VITALS (14 sets, daily range): BP systolic 136–166; BP diastolic 81–112; PULSE 63–96; RESP 12–23; TEMP 36.1–37.1; O2SAT 92–100; BMI 37.5
--- NOTE | 2025-03-04 09:11 | ANES.PREANE2 ---
Pre-Anesthetic Assessment Height/Weight: Height 1.57 m Weight 92.986 kg Temp Pulse Resp BP Pulse Ox O2 Del Method 97.0 F L 80 16 139/88 96 Room Air 03/04/25 07:58 03/04/25 07:58 03/04/25 07:58 03/04/25 07:58 03/04/25 07:58 03/04/25 07:58 Operation Date: 03/04/25 09:20 Proposed Procedures p Closed reduction Percutaneous Pinning Wrist(Right) - Stevie Byers MD Familial anesthetic complications: None Was Beta Nahid taken within 24 hours: N/A Was Clonidine taken within 24 hours: N/A Last intake: Intake Last Liquid Date 03/03/25 Last Liquid Time 23:55 Last Solid Date 03/03/25 Last Solid Time 20:55 Social Tobacco and No alcohol Exam alert, oriented x 3, clear to auscultation bilaterally and regular rate & rhythm Airway Mallampati: Class II Dentition: full Comments: Comments: mod neck contractures from house - limits extension Pulmonary Asthma, Chronic Obstructive Pulmonary Disease and Sleep Apnea Metabolic Hyperlipidemia Anesthetic Plan ASA status: 3 Anesthesia: General Risk of > 500 ml blood loss (7ml/kg in children): No Medications/Allergies Home Medications ?Medication ?Instructions ?Recorded ?Confirmed ?Last Taken ?Type epinephrine 0.3 mg/0.3 mL 0.3 mg IM . DIRECTED PRN 04/05/20 03/03/25 Unknown History injection, auto-injector Allergic Reaction cholecalciferol (vitamin D3) 50 50 mcg PO DAILY 90 days #90 caps 09/07/23 03/03/25 03/03/25 Rx mcg (2,000 unit) capsule auto titrating cpap 6-16cm #1 ea 08/05/24 03/02/25 Unknown Rx fluticasone fur. 200 mcg-umeclid 1 inh inhalation DAILY #60 ea 09/02/24 03/03/25 03/03/25 Rx 62.5 mcg-vilant 25 mcg inhalat.powder (Trelegy Ellipta) albuterol sulfate 90 mcg/actuation 2 puff inhalation Q4H PRN 03/03/25 03/03/25 Unknown History aerosol inhaler Shortness Of Breath bupropion HCl 150 mg tablet,12 hr 150 mg PO DAILY 03/03/25 03/03/25 03/03/25 History sustained-release cetirizine 10 mg tablet (Zyrtec) 10 mg PO DAILY 03/03/25 03/03/25 03/03/25 History duloxetine 20 mg capsule,delayed 20 mg PO DAILY 03/03/25 03/03/25 03/03/25 History release indomethacin 50 mg capsule 50 mg PO BID 03/03/25 03/03/25 03/02/25 History montelukast 10 mg tablet 10 mg PO DAILY 03/03/25 03/03/25 03/03/25 History pantoprazole 40 mg tablet,delayed 20 mg PO DAILY 03/03/25 03/03/25 03/03/25 History release simvastatin 20 mg tablet 20 mg PO DAILY 03/03/25 03/03/25 Unknown History Allergies Allergy/AdvReac Type Severity Reaction Status Date / Time adhesive Allergy ALGY-Rash Verified 03/03/25 10:23 Penicillins Allergy Unknown Verified 03/03/25 10:23 Kathryn's wort Allergy rash Verified 03/03/25 10:23 Current Medications Generic Name Dose Route Start Last Admin Trade Name Freq PRN Reason Stop Dose Admin Sodium Chloride 1,000 mls @ 30 mls/hr 03/04/25 07:30 03/04/25 08:29 Sodium Chloride 0.9% IV 03/05/25 07:29 30 mls/hr .Q24H NURA Administration PFSH Anesthesia Medical History Tobacco abuse Asthma COPD (chronic obstructive pulmonary disease) Pulmonary scarring Depression Surgical History History of skin graft History of tonsillectomy and adenoidectomy History of tubal ligation Family History Family/Other Diabetes Maternal Aunt Denies family history of Colon cancer Ovarian cancer Heart disease Hypercholesteremia Breast cancer Hypertension Uterine cancer Thyroid disease Stroke Social History Smoking and tobacco/nicotine status: current every day tobacco/nicotine user Substance/Drug Use: never
--- NOTE | 2025-03-04 09:33 | W.PM.OPSUD ---
Surgery/Procedure H&P Update DATE OF PROCEDURE: March 04, 2025 DATE H&P PERFORMED: 03/02/25 H&P UPDATE INFORMATION: I have reviewed H&P completed within last 30 days, I have examined patient prior to procedure and No changes to prior documentation PREOP DIAGNOSIS: Fracture distal right radius PLANNED PROCEDURE: Operation Date: 03/04/25 09:20 Proposed Procedures p Closed reduction Percutaneous Pinning Wrist(Right) - Stevie Byers MD
--- NOTE | 2025-03-04 10:26 | PC.NURSE ---
Antibiotics not needed per surgeon
[2025-03-04] MEDS: fentaNYL 50 mcg/mL INJ 2mL IVP ×3 (10:45→11:45)
--- NOTE | 2025-03-04 10:45 | P.OP_ITS ---
Operative Report Date of procedure: March 04, 2025 Surgeon: Stevie Byers MD Procedure: Preoperative diagnosis: Fracture distal right radius Postoperative diagnosis: Same Procedure:Closed reduction with percutaneous pinning right wrist fracture Surgeon: Stevie Byers MD Anesthesia: General Indications: Radha is a 54-year-old white female who fell approximately 1 week ago on outstretched right arm. She was seen in the ED here at [facility] where x-rays demonstrated a dorsally angulated and shortened distal radius of the right. She placed in a splint and followed up in the orthopedic clinic. After evaluation by myself it was felt the patient would benefit from close reduction percutaneous pinning of this wrist fracture to help hold it in the better position. All risk benefits treatment alternatives were discussed with her and she was agreeable to this at this time. Procedure: After obtaining written consent patient was taken to the operating roomAnd placed on the operative table. General anesthetic was administered. Once good anesthesia was achieved neck Was placed on proximal right arm. Right arm was prepped and draped usual fashion. After surgical timeout gentleManipulation and traction was applied to the right wrist to reduce the fracture fragments. There is improvement on dorsal tilt back to neutral position. Radial angulation was not completely achieved but improved. Subsequently to 0.045 K wires were driven from the radial styloid ulnarly from distal to proximal. There is also 1 [address] more dorsally through the fracture fragment to hold it in place. Interoperative fluoroscopy demonstrated these reductions and pin placement. Subsequently pin balls were placed in the pins and pins were cut off to appropriate length. Patient had a sugar-tong splint applied with cotton loader operator/ground leader positioning molded into it. Jacob wrap was used to hold it in place. Patient was then awakened transferred recovery in stable condition
[2025-03-04] MEDS: HYDROcodone-acetaminophen 5-325 mg Tablet 1 TAB PO (12:10)
--- NOTE | 2025-03-04 12:55 | ANE.PACU2 ---
Inpatient post-anesthesia follow up: Airway intact: Yes Vital signs: Temperature 98.5 F Pulse Rate 67 Respiratory Rate 16 Blood Pressure 138/85 Pulse Oximetry 96 Oxygen Delivery Me thod Room Air Oxygen Flow Rate 6 Fraction of Inspir ed Oxygen Hydration adequate: Yes Nausea and vomiting: No Pain level: 1 Mental status: Baseline
--- NOTE | 2025-03-04 15:45 | SC_ITS ---
WS: [id number] C-ARM RADIOGRAPHS WRIST; no lateralization of the imaging submitted. HISTORY: PINNING, OR PICS COMPARISON: None available. Intraoperative pinning of a radial fracture. No lateralization on the imaging. Poor quality imaging. SC/C-arm Mini [id number] IMPRESSION: Intraoperative imaging during orthopedic procedure.
== END 2025-03-04 12:55 | disposition home or self-care (01) ==
PROVIDERS: PCP Nurse Practitioner Family; Visit Provider Orthopaedic Surgery
PROC: (CPT 25605; principal; 2025-03-04 09:20)
DX: S52.501A Unspecified fracture of the lower end of right radius, initial encounter for closed fracture (principal); X58.XXXA Exposure to other specified factors, initial encounter; J44.9 Chronic obstructive pulmonary disease, unspecified; G47.30 Sleep apnea, unspecified; E78.5 Hyperlipidemia, unspecified; K21.9 Gastro-esophageal reflux disease without esophagitis; F32.A Depression, unspecified; F17.200 Nicotine dependence, unspecified, uncomplicated
CPT/HCPCS: 25605; 76000; C1713; J2250; J3010; J7030; J9999

== ENCOUNTER → 2025-03-17 08:16 | Outpatient (BNVA) | payer OTHER, SELFPAY | PROVIDERS: PCP Nurse Practitioner Family; Visit Provider Orthopaedic Surgery | DX: Z98.890 Other specified postprocedural states (principal); S52.531D Colles' fracture of right radius, subsequent encounter for closed fracture with routine healing; X58.XXXD Exposure to other specified factors, subsequent encounter | CPT/HCPCS: 73110 ==

== ENCOUNTER → 2025-04-07 14:15 | Outpatient (BNVA) | payer OTHER, SELFPAY | PROVIDERS: PCP Nurse Practitioner Family; Visit Provider Orthopaedic Surgery | DX: S52.531D Colles' fracture of right radius, subsequent encounter for closed fracture with routine healing (principal); X58.XXXD Exposure to other specified factors, subsequent encounter | CPT/HCPCS: 73110 ==

== ENCOUNTER 2025-04-07 15:41 | Outpatient (CLI) | payer OTHER, SELFPAY | END 2025-04-07 15:42 | disposition home or self-care (01) | LOC: SPT 15:41 | PROVIDERS: PCP Nurse Practitioner Family; Visit Provider Orthopaedic Surgery | DX: Z47.89 Encounter for other orthopedic aftercare (principal); Z98.890 Other specified postprocedural states; S52.591D Other fractures of lower end of right radius, subsequent encounter for closed fracture with routine healing; X58.XXXD Exposure to other specified factors, subsequent encounter | CPT/HCPCS: 97760; L3982 ==